=== PATIENT | female | born 1960 | race Caucasian/White ===

== ENCOUNTER 2017-02-11 14:10 | Emergency (ER) | payer BC ==
[~2017-02-11 14:10] MED LIST: Ciprofloxacin 500 MG Tab ONE
[2017-02-11 14:53] VITALS: BP 112/72
--- NOTE | 2017-02-20 09:23 | EDM.PDOC ---
ED HPI GENERAL MEDICAL PROBLEM - General Chief Complaint: General Stated Complaint: URINARY TRACT INFECT? Time Seen by Provider: 02/11/17 15:00 Source of Information: Reports: Patient History Limitations: Reports: No Limitations - History of Present Illness INITIAL COMMENTS - FREE TEXT/NARRATIVE: According to patient she has been having increased urinary frequency with burning sensation for past 32 days. No fever or chills. No nausea, vomiting or back pain. No vaginal bleeding, pelvic pain or vaginal discharge. Duration: Day(s): (2) Severity: Moderate Improves with: Reports: None Worsens with: Reports: None - Related Data Allergies Allergy/AdvReac Type Severity Reaction Status Date / Time banana Allergy Cannot Verified 08/29/15 13:05 Remember codeine Allergy Cannot Verified 08/29/15 13:05 Remember latex Allergy Cannot Verified 08/29/15 13:05 Remember meperidine HCl [From Demerol] Allergy Cannot Verified 08/29/15 13:05 Remember morphine Allergy Nausea Verified 08/29/15 13:05 Home Meds: Home Meds Colchicine [Colchicine] 0.6 mg PO BID 08/29/15 [History] Pantoprazole [Protonix] 40 mg PO DAILY 08/29/15 [History] predniSONE [Prednisone] 20 mg PO DAILY 08/29/15 [History] Past Medical History HEENT History: Reports: Impaired Vision Cardiovascular History: Reports: Other (See Below) Other Cardiovascular History: pericarditis hx Respiratory History: Reports: None Gastrointestinal History: Reports: GERD Genitourinary History: Reports: Urinary Incontinence Other Genitourinary History: recent uti 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 OB/BYN History: had tubal ligation Musculoskeletal History: Reports: Arthritis, Back Pain, Chronic Psychiatric History: Reports: Depression Oncologic (Cancer) History: Reports: None Dermatologic History: Reports: Eczema - Infectious Disease History Infectious Disease History: Reports: Chicken Pox, Measles, Mumps - Past Surgical History Female Surgical History: Reports: Other (See Below) Social & Family History - Family History Family Medical History: Noncontributory Cardiac: Reports: CAD GI: Reports: None Dermatologic: Reports: Angiodema Oncologic: Reports: Skin - Tobacco Use Smoking Status *Q: Former Smoker Years of Tobacco use: 40 Packs/Tins Daily: 1 Used Tobacco, but Quit: Yes Month Tobacco Last Used: 2010 Second Hand Smoke Exposure: No - Alcohol Use Days Per Week of Alcohol Use: 1 Number of Drinks Per Day: 7 Total Drinks Per Week: 7 - Recreational Drug Use Recreational Drug Use: No ED ROS GENERAL - Review of Systems Review Of Systems: See Below Constitutional: Denies: Fever, Chills HEENT: Denies: Rhinitis, Throat Pain, Throat Swelling Respiratory: Denies: Cough, Sputum Cardiovascular: Denies: Chest Pain, Lightheadedness GI/Abdominal: Denies: Abdominal Pain, Nausea, Vomiting : Reports: Dysuria, Frequency. Denies: Discharge, Pain, Urinary Retention Musculoskeletal: Denies: Joint Pain, Joint Swelling Skin: Denies: Pruritis, Rash ED EXAM, GENERAL - Physical Exam Exam: See Below Exam Limited By: No Limitations General Appearance: Alert, WD/WN, No Apparent Distress Eye Exam: Bilateral Eye: EOMI, PERRL Ears: Normal External Exam, Normal Canal, Hearing Grossly Normal, Normal TMs Ear Exam: Bilateral Ear: Auricle Normal, Canal Normal, TM normal Nose: Normal Inspection, Normal Mucosa, No Blood Throat/Mouth: Normal Inspection, Normal Lips, Normal Teeth, Normal Gums, Normal Oropharynx, Normal Voice, No Airway Compromise Head: Atraumatic, Normocephalic Neck: Normal Inspection, Supple, Non-Tender, Full Range of Motion Respiratory/Chest: No Respiratory Distress, Lungs Clear, Normal Breath Sounds, No Accessory Muscle Use, Chest Non-Tender Cardiovascular: Normal Peripheral Pulses, Regular Rate, Rhythm, No Edema, No Gallop, No JVD, No Murmur, No Rub GI/Abdominal: Normal Bowel Sounds, Soft, Non-Tender, No Organomegaly, No Distention, No Abnormal Bruit, No Mass Course - Vital Signs Text/Narrative:: Pt's UA does show 50-75 WBCs. And she has 2 days history of dysuria and urinary frequency. She does appear to have UTI. Did start her on Cipro 500mg 1 po BID.Advised plenty of fluids and 1-2 glass off cranberry juice. Will send urine culture and followup with results. Last Recorded V/S: Last Vital Signs Temp 96.6 F 02/11/17 14:52 Pulse 88 02/11/17 14:52 Resp 17 02/11/17 14:52 BP 112/72 02/11/17 14:52 Pulse Ox 97 02/11/17 14:52 - Orders/Labs/Meds Labs: Laboratory Tests 02/11/17 Range/Units 14:19 Urine Color Yellow Urine Appearance Cloudy (CLEAR) Urine pH 5.0 (5.0-8.0) Ur Specific Wickes >= 1.030 (1.003-1.030) Urine Protein 100 H (NEGATIVE) mg/dL Urine Glucose (UA) Negative (NEGATIVE) mg/dL Urine Ketones Negative (NEGATIVE) mg/dL Urine Occult Blood Large H (NEGATIVE) Urine Nitrite Negative (NEGATIVE) Urine Bilirubin Negative (NEGATIVE) Urine Urobilinogen 0.2 (0.2-1.0) E.U./dL Ur Leukocyte Esterase Moderate H (NEGATIVE) Urine RBC 50-75 H /HPF Urine WBC 50-75 H /HPF Ur Squamous Epith Cells Few /HPF Urine Bacteria Few /HPF Hyaline Casts Braker Passenger Train Urinalysis Comment Meds: Medications Discontinued Medications Generic Name Dose Route Start Last Admin Trade Name Freq PRN Reason Stop Dose Admin Ciprofloxacin 3,000 mg 02/11/17 14:10 Ciprofloxacin Hcl .ROUTE 02/11/17 14:11 .STK-MED ONE Departure - Departure Time of Disposition: 15:30 Disposition: Home, Self-Care 01 Condition: Good Clinical Impression: UTI (urinary tract infection) - Discharge Information Referrals: PCP,None [Primary Care Provider] - - Problem List & Annotations (1) UTI (urinary tract infection) SNOMED Code(s): 96952820 Code(s): N39.0 - URINARY TRACT INFECTION, SITE NOT SPECIFIED Status: Acute - Problem List Review Problem List Initiated/Reviewed/Updated: Yes - Assessment/Plan Assessment:: UTI Plan: Pt's UA does show 50-75 WBCs. And she has 2 days history of dysuria and urinary frequency. She does appear to have UTI. Did start her on Cipro 500mg 1 po BID.Advised plenty of fluids and 1-2 glass off cranberry juice. Will send urine culture and followup with results.
== END 2017-02-11 15:00 | disposition home or self-care (01) ==
LOC: LB.ED 14:10
DX: N39.0 Urinary tract infection, site not specified (principal); K21.9 Gastro-esophageal reflux disease without esophagitis; M19.90 Unspecified osteoarthritis, unspecified site; F32.9 Major depressive disorder, single episode, unspecified; Z98.51 Tubal ligation status; Z87.891 Personal history of nicotine dependence; Z79.899 Other long term (current) drug therapy; Z88.5 Allergy status to narcotic agent; Z88.8 Allergy status to other drugs, medicaments and biological substances; Z91.018 Allergy to other foods; Z88.6 Allergy status to analgesic agent; Z91.040 Latex allergy status
CPT/HCPCS: 81001; 99283; A9270

== ENCOUNTER 2017-06-03 07:24 | Emergency (ER) | payer BC ==
[2017-06-03] MEDS ORDERED: hydrOXYzine HCl 25 MG Tab ONE (07:30)
[2017-06-03] MEDS ORDERED: predniSONE 10 MG Tab ONE (07:30)
[2017-06-03] MEDS ORDERED: Triamcinolone Acetonide 0.5% Oint 15 GM Tube ONE (07:30)
[2017-06-03 08:09] VITALS: BP 156/99
[2017-06-03] MEDS ORDERED: methylPREDNISolone Sodium Succinate 125 MG/2 ML SDV IM ONE (08:09)
[2017-06-03] MEDS ORDERED: methylPREDNISolone Sodium Succinate 125 MG/2 ML SDV ONE (08:21)
--- NOTE | 2017-06-03 17:33 | EDM.PDOC ---
ED HPI GENERAL MEDICAL PROBLEM - General Chief Complaint: General Stated Complaint: itchiness Time Seen by Provider: 06/03/17 07:55 Source of Information: Reports: Patient History Limitations: Reports: No Limitations - History of Present Illness INITIAL COMMENTS - FREE TEXT/NARRATIVE: This is a 57yo F here for extreme pruritis causing her difficulty sleeping. She recently was on a prednisone burst and kenalog injection but it only helped a little and now she has supplemented on benadryl without improvement. Patient would like something for her eczema and itchiness. Onset: Gradual Duration: Day(s):, Getting Worse Location: Reports: Abdomen, Upper Extremity, Left, Upper Extremity, Right, Lower Extremity, Left, Lower Extremity, Right Severity: Severe Improves with: Reports: None Worsens with: Reports: None Treatments CADASTRAL ENGINEER: Reports: Other Medication(s) Other Treatments CADASTRAL ENGINEER: Benadryl - Related Data Allergies Allergy/AdvReac Type Severity Reaction Status Date / Time banana Allergy Cannot Verified 06/03/17 07:47 Remember codeine Allergy Cannot Verified 06/03/17 07:47 Remember latex Allergy Cannot Verified 06/03/17 07:47 Remember meperidine HCl [From Demerol] Allergy Cannot Verified 06/03/17 07:47 Remember morphine Allergy Nausea Verified 06/03/17 07:47 Home Meds: Home Meds NK [No Known Home Meds] 06/03/17 [History] Past Medical History HEENT History: Reports: Impaired Vision Cardiovascular History: Reports: Other (See Below) Other Cardiovascular History: pericarditis hx Respiratory History: Reports: None Gastrointestinal History: Reports: GERD Genitourinary History: Reports: Urinary Incontinence Other Genitourinary History: 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: had tubal 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 Musculoskeletal History: Reports: Arthritis, Back Pain, Chronic Psychiatric History: Reports: Depression Oncologic (Cancer) History: Reports: None Dermatologic History: Reports: Eczema - Infectious Disease History Infectious Disease History: Reports: Chicken Pox, Measles, Mumps - Past Surgical History Female Surgical History: Reports: Other (See Below) Other Neurological Surgeries/Procedures: denies sensation changes Social & Family History - Family History Family Medical History: Noncontributory Cardiac: Reports: CAD GI: Reports: None Dermatologic: Reports: Angiodema Oncologic: Reports: Skin - Tobacco Use Smoking Status *Q: Former Smoker Years of Tobacco use: 40 Packs/Tins Daily: 1 Used Tobacco, but Quit: Yes Month Tobacco Last Used: 2010 Second Hand Smoke Exposure: No - Alcohol Use Days Per Week of Alcohol Use: 1 Number of Drinks Per Day: 7 Total Drinks Per Week: 7 - Recreational Drug Use Recreational Drug Use: No ED ROS GENERAL - Review of Systems Review Of Systems: ROS reveals no pertinent complaints other than HPI. ED EXAM, GENERAL - Physical Exam Exam: See Below Exam Limited By: No Limitations General Appearance: Alert, WD/WN, Moderate Distress Respiratory/Chest: No Respiratory Distress Cardiovascular: Normal Peripheral Pulses Neurological: Alert, Oriented Psychiatric: Anxious Skin Exam: Rash, Other (dry irritated, excoriated arms, hands, thighs) Course - Vital Signs Last Recorded V/S: Last Vital Signs Temp 36.4 C 06/03/17 07:51 Pulse 101 H 06/03/17 08:08 Resp 18 06/03/17 08:08 BP 156/99 H 06/03/17 08:08 Pulse Ox 99 06/03/17 08:08 - Orders/Labs/Meds Meds: Medications Discontinued Medications Generic Name Dose Route Start Last Admin Trade Name Momo PRN Reason Stop Dose Admin Hydroxyzine HCl 225 mg 06/03/17 07:30 Atarax .ROUTE 06/03/17 07:31 .STK-MED ONE Methylprednisolone Sodium Succinate 125 mg 06/03/17 08:09 06/03/17 08:39 Solu-Medrol IM 06/03/17 08:10 125 mg ONETIME ONE Administration Methylprednisolone Sodium Succinate Confirm 06/03/17 08:21 06/03/17 09:27 Solu-Medrol Administered 06/03/17 08:22 Not Given Dose 125 mg .ROUTE .STK-MED ONE Prednisone 150 mg 06/03/17 07:30 Prednisone .ROUTE 06/03/17 07:31 .STK-MED ONE Triamcinolone Acetonide 15 gm 06/03/17 07:30 Triamcinolone Acetonide 0.5% Oint .ROUTE 06/03/17 07:31 .STK-MED ONE Departure - Departure Time of Disposition: 08:45 Disposition: Home, Self-Care 01 Condition: Good Clinical Impression: Severe eczema - Discharge Information Instructions: Eczema, Hand Dermatitis, [id number] Referrals: PCP,None [Primary Care Provider] - Forms: ED Department Discharge Additional Instructions: Take Prednisone tablets as directed. Use up the bottle of Prednisone that has been given to you and then machine operator picker your prescription for the rest of your Prednisone on Sunday. You have been given a tube of Triamcinolone cream as needed. Also, use the Eucrisa cream as needed, do not use these creams on the same areas at the same time. You have also been given Hydroxyzine to take as needed, if this medication works for you let Dr. Nichols know and he can write you a prescription for this. Do not use hot water, and it would be best for you to go get a humidifier. If your symptoms worsen return to the ER or come to the clinic. If you have any questions or concerns please call us at [phone].
== END 2017-06-03 08:58 | disposition home or self-care (01) ==
LOC: LB.ED 07:24
DX: L30.9 Dermatitis, unspecified (principal); Z91.018 Allergy to other foods; Z88.5 Allergy status to narcotic agent; Z91.040 Latex allergy status; Z87.891 Personal history of nicotine dependence
CPT/HCPCS: 96372; 99282-25; A9270-GY; J2930

== ENCOUNTER 2017-11-24 14:32 | Emergency (ER) | payer BC ==
[2017-11-24] MEDS: Sodium Chloride 0.9% 1,000 ML IV SCH ×2 (15:10→16:58)
[2017-11-24] MEDS ORDERED: diphenhydrAMINE 50 MG/ML SDV IVPUSH ONE (15:45)
[2017-11-24] MEDS ORDERED: Ondansetron 4 MG/2 ML SDV IVPUSH PRN (15:45)
[2017-11-24] MEDS ORDERED: Ketorolac 60 MG/2 ML SDV IVPUSH ONE (15:45)
[2017-11-24] MEDS ORDERED: Sodium Chloride 0.9% 10 ML Syringe FLUSH PRN (15:47)
[2017-11-24 16:41] VITALS: BP 121/71
--- NOTE | 2017-11-26 07:59 | CT ---
DATE OF SERVICE: 11/24/17 CLINICAL DATA: headache,nausea vomiting UNENHANCED BRAIN CT: Normal exam. [id number] MTDD
== END 2017-11-24 18:10 | disposition home or self-care (01) ==
LOC: LB.ED 14:32
DX: R51 Headache (principal); E86.0 Dehydration
CPT/HCPCS: 36415; 70450; 80048; 85025; 96361; 96374; 96375; 99284-25; J1200; J1885; J2405; J7030; J7050

== ENCOUNTER 2017-11-25 18:17 | Emergency (ER) | payer BC ==
[2017-11-25] MEDS ORDERED: Sodium Chloride 0.9% 1,000 ML IV ONE (19:00)
[2017-11-25] MEDS ORDERED: Ondansetron 4 MG/2 ML SDV IVPUSH ONE (19:15)
[2017-11-25] MEDS ORDERED: Sodium Chloride 0.9% 10 ML Syringe FLUSH PRN (19:18)
[2017-11-25 19:51] VITALS: BP 115/68
--- NOTE | 2017-11-26 08:09 | CT ---
DATE OF SERVICE: 11/25/17 CLINICAL DATA: ABD PAIN UNENHANCED ABDOMEN AND PELVIC CT: Multislice acquisition through the abdomen and pelvis without IV or oral contrast was performed. No priors. The lung bases are clear. There is a small hiatal hernia. There is gas in the distal esophagus, most likely related to GE reflux. The unenhanced liver appears normal. The gallbladder appears normal. The spleen appears normal. The pancreas appears normal. The right and left adrenals appear normal. There is a 2 mm nonobstructing renal calculi on the left. The kidneys otherwise appear normal. No hydronephrosis or hydroureter. The bladder is fluid-filled and appears normal. No evidence of appendicitis. There are scattered air-fluid levels in the small bowel. No distended loops of bowel. Enteritis should be considered. No free air. No free fluid. No dilated loops of bowel. No adenopathy. No aortic aneurysm. [id number] [facility]
== END 2017-11-25 21:00 | disposition home or self-care (01) ==
LOC: LB.ED 18:17
DX: R10.11 Right upper quadrant pain (principal); R11.2 Nausea with vomiting, unspecified
CPT/HCPCS: 36415; 74176; 80048; 80076; 81001; 85025; 87086; 87088; 96374; 99284; J2405; J7030; J7050; 83690; 87186

== ENCOUNTER 2018-11-16 20:31 | Emergency (ER) | payer BC ==
[2018-11-16 22:49] VITALS: BP 125/65
--- NOTE | 2018-11-16 23:46 | EDM.PDOC ---
ED HPI GENERAL MEDICAL PROBLEM - General Chief Complaint: General Stated Complaint: laceration Time Seen by Provider: 11/16/18 21:45 Source of Information: Reports: Patient History Limitations: Reports: No Limitations - History of Present Illness INITIAL COMMENTS - FREE TEXT/NARRATIVE: This is a pleasant 58yo F here for a laceration of the right lower anterior june area. She tripped on a tree root and landed directed on the june area and tore the skin. Patient denies any other issues or injuries and states her tetanus is up to date. Onset: Sudden Location: Reports: Lower Extremity, Right Quality: Reports: Ache Severity: Moderate Improves with: Reports: None Worsens with: Reports: None - Related Data Allergies Allergy/AdvReac Type Severity Reaction Status Date / Time banana Allergy Cannot Verified 11/16/18 23:39 Remember codeine Allergy Cannot Verified 11/16/18 23:39 Remember latex Allergy Cannot Verified 11/16/18 23:39 Remember meperidine HCl [From Demerol] Allergy Cannot Verified 11/16/18 23:39 Remember morphine Allergy Nausea Verified 11/16/18 23:39 Home Meds: Home Meds Doxepin HCl [Doxepin] 1 tab PO DAILY 11/16/18 [History] Fluocinonide [Lidex 0.05% Oint] 1 applic TOP ASDIRECTED 11/16/18 [History] Loratadine 1 tab PO BID 11/16/18 [History] Past Medical History HEENT History: Reports: Impaired Vision Cardiovascular History: Reports: Other (See Below) Other Cardiovascular History: pericarditis hx Respiratory History: Reports: None Gastrointestinal History: Reports: GERD Genitourinary History: Reports: Urinary Incontinence, UTI, Recurrent Other Genitourinary History: recent uti 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 SURVEYS 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: had tubal ligation Musculoskeletal History: Reports: Arthritis, Back Pain, Chronic Psychiatric History: Reports: Anxiety, Depression Oncologic (Cancer) History: Reports: None Dermatologic History: Reports: Eczema - Infectious Disease History Infectious Disease History: Reports: Chicken Pox, Measles, Mumps - Past Surgical History Female Surgical History: Reports: Other (See Below) Other Female Surgeries/Procedures: bladder repair Other Neurological Surgeries/Procedures: denies sensation changes Social & Family History - Family History Family Medical History: Noncontributory Cardiac: Reports: CAD GI: Reports: None Dermatologic: Reports: Angiodema Oncologic: Reports: Skin - Tobacco Use Smoking Status *Q: Former Smoker Packs/Tins Daily: 30 Used Tobacco, but Quit: Yes Month/Year Tobacco Last Used: 2010 - Caffeine Use Caffeine Use: Reports: None - Recreational Drug Use Recreational Drug Use: No ED ROS GENERAL - Review of Systems Review Of Systems: ROS reveals no pertinent complaints other than HPI. ED EXAM, GENERAL - Physical Exam Exam: See Below Exam Limited By: No Limitations General Appearance: Alert, WD/WN, Mild Distress Eye Exam: Bilateral Eye: EOMI, PERRL Ears: Normal External Exam Nose: Normal Inspection Throat/Mouth: Normal Inspection Head: Atraumatic, Normocephalic Neck: Normal Inspection Respiratory/Chest: No Respiratory Distress, Lungs Clear Cardiovascular: Normal Peripheral Pulses, Regular Rate, Rhythm Peripheral Pulses: 2+: Dorsalis Pedis (L), Dorsalis Pedis (R) GI/Abdominal: Normal Bowel Sounds Extremities: Other (right lower right june skin shearing and tear 4inches across elliptical with 1 inch diameter) ED GENERAL MEDICAL PROCEDURES - Additional/Other Procedure(s) Other (Free Text) Procedure(s): Area cleansed and approximated skin shear as much as possible and steri-strips applied with bacitracin and dressed. No complications. Course - Vital Signs Last Recorded V/S: Last Vital Signs Temp 37.1 C 11/16/18 21:45 Pulse 88 11/16/18 21:45 Resp 16 11/16/18 21:45 BP 125/65 11/16/18 21:45 Pulse Ox 97 11/16/18 21:45 Departure - Departure Time of Disposition: 22:30 Disposition: Home, Self-Care 01 Condition: Good Clinical Impression: Skin tear of right lower leg without complication Qualifiers: Encounter type: initial encounter Qualified Code(s): S81.811A - Laceration without foreign body, right lower leg, initial encounter - Discharge Information Instructions: Wound Infection, [id number] Forms: ED Department Discharge Additional Instructions: Keep applied dressing in place until tomorrow afternoon and then remove, gently clean around area and dab dry, apply Bacitracin as instructed by Dr. Nichols, cover with Telfa non-adherent dressing and secure with roll gauze. Dressing changes daily and as needed for next 2-3 days. Be sure to watch affected area for any signs and symptoms of infection present including increased redness, increased swelling, increased pain or tenderness to touch, foul drainage, and/or fever present. Should any of these symptoms occur, return to be seen for further treatment. Call with any questions. - Problem List & Annotations (1) Skin tear of right lower leg without complication SNOMED Code(s): 074203505 Code(s): S81.811A - LACERATION W/O FOREIGN BODY, RIGHT LOWER LEG, INIT ENCNTR Status: Acute Priority: High Qualifiers: Encounter type: initial encounter Qualified Code(s): S81.811A - Laceration without foreign body, right lower leg, initial encounter - Problem List Review Problem List Initiated/Reviewed/Updated: Yes - Assessment/Plan Plan: Counseled on wound care and close monitoring and management and f/u as needed. Discussed dressing changes and continued care. Patient understands care and f/u as directed.
== END 2018-11-16 22:15 | disposition home or self-care (01) ==
LOC: LB.ED 20:31
DX: S81.811A Laceration without foreign body, right lower leg, initial encounter (principal); M19.90 Unspecified osteoarthritis, unspecified site; Z87.891 Personal history of nicotine dependence; Z88.5 Allergy status to narcotic agent; Z91.040 Latex allergy status; Z91.018 Allergy to other foods; W01.198A Fall on same level from slipping, tripping and stumbling with subsequent striking against other object, initial encounter
CPT/HCPCS: 99282

== ENCOUNTER 2019-04-13 16:16 | Emergency (ER) | payer BC ==
[2019-04-13 16:43] VITALS: BP 149/91; PULSE 92
--- NOTE | 2019-04-14 00:17 | ER ---
HPI: A 59-year-old lady here with complaints of right foot pain. It has been bothering her for a few days. It is steadily getting worse. The patient has undergone bunionectomy surgery on the left foot 2 weeks ago. She states this is doing well, but now her right foot is getting more and more painful as she is starting to walk a little bit more each day. Her right foot is to the point where the pain is severe at times. She denies any falls or injuries to the right foot. OBJECTIVE: GENERAL APPEARANCE: The patient is awake and alert, in no obvious distress. VITAL SIGNS: Reviewed as listed. EXTREMITIES: Examining the right foot reveals skin is intact. There is tenderness with palpation along the dorsal and sole of the foot over the area roughly of the third, fourth, and fifth metatarsals. Pushing on the ball of the foot against resistance is definitely painful with guarding for the patient. She also has pain when she goes up on her tiptoes flexing the foot. This is consistent with tendinitis. DIAGNOSIS: Tendinitis. TREATMENT PLAN: A walking Cam will be given to her. She is to wear this with all walking activities for 2 weeks, longer if needed. She does have ibuprofen 800 mg tablets at home. She is to use 1 tablet t.i.d. with food. Over the next few days, she can start breaking them in half and going to 400 mg as her symptoms should be improving. Activity should be as tolerated and recheck should be in a week or so in the clinic unless her symptoms have significantly improved at that time and then recheck could be p.r.nDarrel LIZAMA/JASWANT /[id number]
== END 2019-04-13 16:50 | disposition home or self-care (01) ==
LOC: LB.ED 16:16
DX: M77.9 Enthesopathy, unspecified (principal)
CPT/HCPCS: 99283

== ENCOUNTER 2019-12-27 19:50 | Emergency (ER) | payer BC ==
[2019-12-27] MEDS ORDERED: Prochlorperazine 10 MG/2 ML SDV IVPUSH ONE (20:48)
--- NOTE | 2019-12-27 20:50 | EDM.PDOC ---
ED HPI GENERAL MEDICAL PROBLEM - General Chief Complaint: General Stated Complaint: flank pain Time Seen by Provider: 12/27/19 20:30 Source of Information: Reports: Patient History Limitations: Reports: No Limitations - History of Present Illness INITIAL COMMENTS - FREE TEXT/NARRATIVE: pt presents to the ER with right side flank pain and RUQ abdominal pain. pt describes both as a constant pressure and have been unrelenting since onset at about 1400 today. pt attempted tylenol without relief, no other alleviating factors known by pt. aggravating factors include palpation of these areas, pt states she feels nauseated with palpation. pt denies fever, chills, vomiting, dysuria, hematuria, pyuria, pain with ROM of back. Left Flank Pain Score (Numeric/FACES): 8 - Related Data Allergies Allergy/AdvReac Type Severity Reaction Status Date / Time banana Allergy Cannot Verified 12/27/19 20:27 Remember codeine Allergy Cannot Verified 12/27/19 20:27 Remember latex Allergy Cannot Verified 12/27/19 20:27 Remember meperidine HCl [From Demerol] Allergy Cannot Verified 12/27/19 20:27 Remember morphine Allergy Nausea Verified 12/27/19 20:27 Home Meds: Home Meds Doxepin HCl [Doxepin] 1 tab PO DAILY 11/16/18 [History] Past Medical History HEENT History: Reports: Impaired Vision Cardiovascular History: Reports: Other (See Below) Other Cardiovascular History: pericarditis hx Respiratory History: Reports: None Gastrointestinal History: Reports: GERD Genitourinary History: Reports: Urinary Incontinence, UTI, Recurrent Other Genitourinary History: recent uti 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 Musculoskeletal History: Reports: Arthritis, Back Pain, Chronic Psychiatric History: Reports: Anxiety, Depression Oncologic (Cancer) History: Reports: None Dermatologic History: Reports: Eczema - Infectious Disease History Infectious Disease History: Reports: Chicken Pox, Measles, Mumps - Past Surgical History Female Surgical History: Reports: Other (See Below) Other Female Surgeries/Procedures: bladder repair Other Neurological Surgeries/Procedures: denies sensation changes Musculoskeletal Surgical History: Reports: Shoulder Surgery Other Musculoskeletal Surgeries/Procedures:: 10/2019 - Right RCR, subacromial decompression, biceps tenodesis Social & Family History - Family History Family Medical History: Noncontributory Cardiac: Reports: CAD GI: Reports: None Dermatologic: Reports: Angiodema Oncologic: Reports: Skin - Tobacco Use Smoking Status *Q: Former Smoker Used Tobacco, but Quit: Yes Month/Year Tobacco Last Used: 1999 - Caffeine Use Caffeine Use: Reports: Coffee, Soda - Recreational Drug Use Recreational Drug Use: No ED ROS GENERAL - Review of Systems Review Of Systems: Comprehensive ROS is negative, except as noted in HPI. ED EXAM, GENERAL - Physical Exam Exam: See Below Exam Limited By: No Limitations General Appearance: Alert, WD/WN, Mild Distress Eye Exam: Bilateral Eye: EOMI, PERRL Head: Atraumatic, Normocephalic Respiratory/Chest: No Respiratory Distress, Lungs Clear, Normal Breath Sounds, No Accessory Muscle Use Cardiovascular: Normal Peripheral Pulses, Regular Rate, Rhythm, No Gallop, No JVD, No Murmur, No Rub Peripheral Pulses: 2+: Radial (L), Radial (R) GI/Abdominal: Normal Bowel Sounds, Soft, No Organomegaly, No Mass, Tender (RUQ TTP) Back Exam: Normal Inspection, Full Range of Motion, Other (no CVA tenderness) Neurological: Alert, Oriented, CN II-XII Intact, Normal Cognition, Normal Gait Psychiatric: Normal Affect, Normal Mood Skin Exam: Warm, Dry, Intact Course - Vital Signs Last Recorded V/S: Last Vital Signs Temp 97 F 12/27/19 21:55 Pulse 80 12/27/19 21:55 Resp 18 12/27/19 21:55 BP 119/61 12/27/19 21:55 Pulse Ox 97 12/27/19 21:55 - Orders/Labs/Meds Orders: Active Orders 24 hr Category Date Time Status Abdomen w Cont [CT] Stat Exams 12/27/19 20:52 Taken Ketorolac [Toradol] Med 12/27/19 21:30 Active 15 mg IVPUSH Q6H Lactated Ringers [Ringers, Lactated] 1,000 ml Med 12/27/19 21:00 Active IV BOLUS Medication Orders Lactated Ringer's (Ringers, Lactated) 1,000 mls @ 1,000 mls/hr IV BOLUS CAROLINE Last Admin: 12/27/19 20:52 Dose: 1,000 mls/hr Documented by: MERLE Ketorolac Tromethamine (Toradol) 15 mg IVPUSH Q6H CAROLINE Stop: 01/01/20 21:28 Last Admin: 12/27/19 21:31 Dose: 15 mg Documented by: MERLE Labs: Laboratory Tests 12/27/19 12/27/19 12/27/19 Range/Units 20:55 20:55 22:00 WBC 9.6 D (4.0-11.0) K/uL RBC 4.41 (3.80-5.80) M/uL Hgb 13.1 (11.5-16.5) g/dL Hct 39.0 (37.0-47.0) % MCV 88 (76-96) fL MCH 29.7 (27.0-32.0) pg MCHC 33.6 (31.0-35.0) g/dL RDW 12.9 (11.0-16.0) % Plt Count 356 (150-500) K/uL MPV 8.8 (6.0-10.0) fL Neut % (Auto) 51.9 (45.0-70.0) % Lymph % (Auto) 33.9 (20.0-40.0) % [place] % (Auto) 10.1 H (3.0-10.0) % Eos % (Auto) 3.2 (1.0-5.0) % Baso % (Auto) 0.9 H (0.0-0.5) % Neut # (Auto) 4.96 (2.00-7.50) K/uL Lymph # (Auto) 3.25 (1.50-4.00) K/uL [place] # (Auto) 0.97 H (0.20-0.80) K/uL Eos # (Auto) 0.31 (0.04-0.40) K/uL Baso # (Auto) 0.09 (0.02-0.10) K/uL Sodium 140 (136-145) mmol/L Potassium 3.4 L (3.5-5.1) mmol/L Chloride 106 (98-107) mmol/L Carbon Dioxide 26.4 (21.0-32.0) mmol/L Anion Gap 11.0 (5.0-15.0) mmol/L BUN 22 D (8-26) mg/dL Creatinine 0.91 D (0.55-1.02) mg/dL Est Cr Clr Drug Dosing 56.77 mL/min Estimated GFR (MDRD) > 60 (>60) MLS/MIN BUN/Creatinine Ratio 24.2 (6-25) Glucose 118 H (74-100) mg/dL Calcium 9.1 (8.5-10.1) mg/dL Total Bilirubin 0.2 D (0.0-1.0) mg/dL AST 16 (15-37) U/L ALT 55 (12-78) U/L Alkaline Phosphatase 91 (46-116) U/L Total Protein 7.3 (6.4-8.2) g/dL Albumin 3.5 (3.4-5.0) g/dL Globulin 3.8 (2.2-4.2) g/dL Albumin/Globulin Ratio 0.9 (0.8-2.0) Lipase 181 D (73-393) U/L Urine Color Yellow Urine Appearance Clear (CLEAR) Urine pH 5.5 (5.0-8.0) Ur Specific [place] >= 1.030 (1.003-1.030) Urine Protein Negative (NEGATIVE) mg/dL Urine Glucose (UA) Negative (NEGATIVE) mg/dL Urine Ketones Negative (NEGATIVE) mg/dL Urine Occult Blood Negative (NEGATIVE) Urine Nitrite Negative (NEGATIVE) Urine Bilirubin Negative (NEGATIVE) Urine Urobilinogen 0.2 (0.2-1.0) E.U./dL Ur Leukocyte Esterase Negative (NEGATIVE) Meds: Medications Generic Name Dose Route Start Last Admin Trade Name Freq PRN Reason Stop Dose Admin Lactated Ringer's 1,000 mls @ 1,000 mls/hr 12/27/19 21:00 12/27/19 20:52 Ringers, Lactated IV 1,000 mls/hr BOLUS CAROLINE Administration Ketorolac Tromethamine 15 mg 12/27/19 21:30 12/27/19 21:31 Toradol IVPUSH 01/01/20 21:28 15 mg Q6H CAROLINE Administration Discontinued Medications Generic Name Dose Route Start Last Admin Trade Name Freq PRN Reason Stop Dose Admin Fentanyl 50 mcg 12/27/19 20:43 12/27/19 21:20 Sublimaze IVPUSH 50 mcg Q5M PRN Administration Pain Fentanyl 50 mcg 12/27/19 21:11 Sublimaze IVPUSH Q5M PRN Pain Prochlorperazine Edisylate 10 mg 12/27/19 20:48 12/27/19 20:58 Compazine IVPUSH 12/27/19 20:49 10 mg ONETIME ONE Administration Departure - Departure Time of Disposition: 22:21 Disposition: Home, Self-Care 01 Condition: Good Clinical Impression: RUQ abdominal pain, Left flank pain - Discharge Information *PRESCRIPTION DRUG MONITORING PROGRAM REVIEWED*: No *COPY OF PRESCRIPTION DRUG MONITORING REPORT IN PATIENT JIMMIE: No Instructions: Cholelithiasis, [id number] Forms: ED Department Discharge Additional Instructions: drink at least 100oz of water a day tylenol 1,000mg and ibuprofen 600mg of ibuprofen four times a day for pain US outpatient order, they will call sunday. this is to get a better check of gallbladder stay away from fatty foods for the next few days. Sepsis Event Note (ED) - Evaluation Sepsis Screening Result: No Definite Risk - Focused Exam Vital Signs: Vital Signs Temp Pulse Resp BP Pulse Ox 12/27/19 21:55 97 F 80 18 119/61 97 12/27/19 20:43 98 158/93 H 12/27/19 20:30 97.7 F 104 H 18 183/103 H 97 - Problem List & Annotations (1) Left flank pain SNOMED Code(s): 566682762 Code(s): R10.9 - UNSPECIFIED ABDOMINAL PAIN Status: Acute (2) RUQ abdominal pain SNOMED Code(s): 478833345 Code(s): R10.11 - RIGHT UPPER QUADRANT PAIN Status: Acute - Problem List Review Problem List Initiated/Reviewed/Updated: Yes - My Orders Last 24 Hours: My Active Orders 12/27/19 20:52 Abdomen w Cont [CT] Stat 12/27/19 21:00 Lactated Ringers [Ringers, Lactated] 1,000 ml IV BOLUS 12/27/19 21:30 Ketorolac [Toradol] 15 mg IVPUSH Q6H - Assessment/Plan Last 24 Hours: My Active Orders 12/27/19 20:52 Abdomen w Cont [CT] Stat 12/27/19 21:00 Lactated Ringers [Ringers, Lactated] 1,000 ml IV BOLUS 12/27/19 21:30 Ketorolac [Toradol] 15 mg IVPUSH Q6H Assessment:: assessment: RUQ abdominal pain L flank pain plan: 100mcg fentanyl, 15mg toradol for pain, compazine for nausea, over an hour passed since pt provided medication and pt pain had completely resolved. discharge home to monitor condition OTC pain meds prn outpt US RUQ pt evaluated in the ER in setting of covid 19 pandemic. differentials considered gallbladder attack, cholecystitis, choledocolithiasis, renal stone, UTI
[2019-12-27] MEDS ORDERED: Lactated Ringers 1,000 ML IV SCH (21:00)
[2019-12-27] MEDS ORDERED: fentaNYL 100 MCG/2 ML SDV IVPUSH PRN (21:11)
[2019-12-27] MEDS: fentaNYL 100 MCG/2 ML SDV IVPUSH PRN ×2 (21:15→21:20)
[2019-12-27] MEDS ORDERED: Ketorolac 60 MG/2 ML SDV IVPUSH SCH (21:30)
[2019-12-27 21:56] VITALS: BP 119/61; PULSE 80
--- NOTE | 2019-12-28 10:21 | CT ---
DATE OF SERVICE: 12/27/19 CLINICAL DATA: RUQ pain, TTP. gallbladder attack? renal stones? ENHANCED ABDOMEN CT: Multislice acquisition through the abdomen with IV, but without oral contrast was performed. Comparison is made to a prior exam dated 11/29/17. There are mild atelectatic changes in the dependent portion of both lower lungs. The lung bases are otherwise clear. The heart size is normal. There is mild diffuse fatty infiltration of the liver. No focal hepatic lesions. The gallbladder is mildly distended. otherwise normal. No biliary duct dilatation. The spleen appears normal. The pancreas appears normal. The right and left adrenals appear normal. The right and left kidneys enhance symmetrically. There is a subcentimeter low density lesion in the right renal pt1lthy most likely representing cysts. The kidneys otherwise appear normal. No hydronephrosis or hydroureter. There is a moderate amount of stool noted within the visualized colon. No dilated loops of bowel. No free air. No free fluid. No aortic aneurysm or dissection. No adenopathy. IMPRESSION: No acute abnormalities. Other findings as discussed above. [id number] [facility]
== END 2019-12-27 22:25 | disposition home or self-care (01) ==
LOC: LB.ED 19:50
DX: R10.11 Right upper quadrant pain (principal); Z91.018 Allergy to other foods; Z88.5 Allergy status to narcotic agent; Z91.040 Latex allergy status; Z87.891 Personal history of nicotine dependence
CPT/HCPCS: 36415; 74160; 80053; 81003; 83690; 85025; 96374; 96375; 99284; J0780; J1885; J3010; J7120; 99283

== ENCOUNTER 2021-01-05 00:20 | Emergency (ER) | payer BC ==
[2021-01-05] MEDS ORDERED: methylPREDNISolone Sodium Succinate 125 MG/2 ML SDV IM ONE (00:35)
[2021-01-05 01:48] VITALS: BP 148/81; PULSE 80
--- NOTE | 2021-01-05 10:39 | EDM.PDOC ---
ED HPI GENERAL MEDICAL PROBLEM - General Chief Complaint: Skin Complaint Stated Complaint: rash Time Seen by Provider: 01/05/21 00:20 - History of Present Illness INITIAL COMMENTS - FREE TEXT/NARRATIVE: Patient comes to the ER with complaints of a very itchy rash around her neck and anterior chest wall. She has been using a cold wrap for comfort purposes, and she feels that she is reacting to something with the product she has been using. She did take 2 Benadryl but states that she is very itchy and uncomfortable and cannot sleep. She denies any problems with fever chauffeurs shortness of breath coughing or wheezing. - Related Data Allergies Allergy/AdvReac Type Severity Reaction Status Date / Time banana Allergy Cannot Verified 01/05/21 01:42 Remember codeine Allergy Cannot Verified 01/05/21 01:42 Remember latex Allergy Cannot Verified 01/05/21 01:42 Remember meperidine HCl [From Demerol] Allergy Cannot Verified 01/05/21 01:42 Remember morphine Allergy Nausea Verified 01/05/21 01:42 Home Meds: Home Meds Doxepin HCl [Doxepin] 1 tab PO DAILY 11/16/18 [History] Past Medical History HEENT History: Reports: Impaired Vision Cardiovascular History: Reports: Other (See Below) Other Cardiovascular History: pericarditis hx Respiratory History: Reports: None Gastrointestinal History: Reports: GERD Genitourinary History: Reports: Urinary Incontinence, UTI, Recurrent Other Genitourinary History: recent uti 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 Musculoskeletal History: Reports: Arthritis, Back Pain, Chronic Psychiatric History: Reports: Anxiety, Depression Oncologic (Cancer) History: Reports: None Dermatologic History: Reports: Eczema - Infectious Disease History Infectious Disease History: Reports: Chicken Pox, Measles, Mumps - Past Surgical History Cardiovascular Surgical History: Reports: None Female Surgical History: Reports: Other (See Below) Other Female Surgeries/Procedures: bladder repair Other Neurological Surgeries/Procedures: denies sensation changes Musculoskeletal Surgical History: Reports: Shoulder Surgery Other Musculoskeletal Surgeries/Procedures:: 10/2019 - Right RCR, subacromial decompression, biceps tenodesis Social & Family History - Family History Family Medical History: No Pertinent Family History Cardiac: Reports: CAD GI: Reports: None Dermatologic: Reports: Angiodema Oncologic: Reports: Skin - Tobacco Use Tobacco Use Status *Q: Unknown Ever Used Tobacco - Caffeine Use Caffeine Use: Reports: Coffee, Soda ED ROS GENERAL - Review of Systems Review Of Systems: Comprehensive ROS is negative, except as noted in HPI. Skin: Reports: Pruritis, Rash ED EXAM, SKIN/RASH Exam: See Below Skin: Other (Patient has a diffuse erythematous slightly raised rash on the anterior chest wall radiating up to both shoulders and around the lower portion of her neck there are no blisters or pustules or scabs noted. The rash is slightly warm to touch, and the patient wants to keep itching at the area.) Course - Vital Signs Last Recorded V/S: Last Vital Signs Temp 98.5 F 01/05/21 00:21 Pulse 80 01/05/21 00:21 Resp 18 01/05/21 00:21 BP 148/81 H 01/05/21 00:21 Pulse Ox 97 01/05/21 00:21 - Orders/Labs/Meds Meds: Medications Discontinued Medications Generic Name Dose Route Start Last Admin Trade Name Momo PRN Reason Stop Dose Admin Methylprednisolone Sodium Succinate 125 mg 01/05/21 00:35 01/05/21 00:32 Methylprednisolone Sodium Succinate 125 Mg/2 Ml Sdv IM 01/05/21 00:36 125 mg ONETIME ONE Administration - Re-Assessments/Exams Free Text/Narrative Re-Assessment/Exam: 01/05/21 10:37 She will be given Solu Medrol 125 mg IM. Departure - Departure Time of Disposition: 01:00 Disposition: Home, Self-Care 01 Condition: Good Clinical Impression: Pruritic rash - Discharge Information *PRESCRIPTION DRUG MONITORING PROGRAM REVIEWED*: Not Applicable *COPY OF PRESCRIPTION DRUG MONITORING REPORT IN PATIENT JIMMIE: Not Applicable Instructions: Rash, Adult Referrals: PCP,None [Primary Care Provider] - Forms: ED Department Discharge Additional Instructions: follow up as needed. return if worse Sepsis Event Note (ED) - Evaluation Sepsis Screening Result: No Definite Risk - Focused Exam Vital Signs: Vital Signs Temp Pulse Resp BP Pulse Ox 01/05/21 00:21 98.5 F 80 18 148/81 H 97
== END 2021-01-05 00:35 | disposition home or self-care (01) ==
LOC: LB.ED 00:20
DX: L29.9 Pruritus, unspecified (principal); Z91.018 Allergy to other foods; Z88.5 Allergy status to narcotic agent; Z91.040 Latex allergy status
CPT/HCPCS: 96372; 99282; J2930

== ENCOUNTER 2021-05-23 10:09 | Emergency (ER) | payer BC ==
[2021-05-23] MEDS: Albuterol/Ipratropium 3.0-0.5 MG/3 ML Neb Soln NEB ONE (10:31)
[2021-05-23 10:53] VITALS: BP 125/88; PULSE 108
--- NOTE | 2021-05-23 11:51 | EDM.PDOC ---
ED HPI GENERAL MEDICAL PROBLEM - General Chief Complaint: Respiratory Problem Stated Complaint: SHORTNESS OF BREATH Time Seen by Provider: 05/23/21 10:45 - History of Present Illness INITIAL COMMENTS - FREE TEXT/NARRATIVE: Pt comes in with C/O wheezing, coughing, and SOB. symptoms started 2-3 weeks ago, but became worse today. She has had Covid testing multiple times with negative results. She has a Covid test pending now. She denies any Hx of Asthma, COPD, or bronchitis. She has never has a inhaler at home. Cough is dry. - Related Data Allergies Allergy/AdvReac Type Severity Reaction Status Date / Time banana Allergy Cannot Verified 01/05/21 01:42 Remember codeine Allergy Cannot Verified 01/05/21 01:42 Remember latex Allergy Cannot Verified 01/05/21 01:42 Remember meperidine HCl [From Demerol] Allergy Cannot Verified 01/05/21 01:42 Remember morphine Allergy Nausea Verified 01/05/21 01:42 Home Meds: Home Meds Doxepin HCl [Doxepin] 1 tab PO DAILY 11/16/18 [History] Past Medical History HEENT History: Reports: Impaired Vision Cardiovascular History: Reports: Other (See Below) Other Cardiovascular History: pericarditis hx Respiratory History: Reports: None Gastrointestinal History: Reports: GERD Genitourinary History: Reports: Urinary Incontinence, UTI, Recurrent Other Genitourinary History: recent 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 Musculoskeletal History: Reports: Arthritis, Back Pain, Chronic Psychiatric History: Reports: Anxiety, Depression Oncologic (Cancer) History: Reports: None Dermatologic History: Reports: Eczema - Infectious Disease History Infectious Disease History: Reports: Chicken Pox, Measles, Mumps - Past Surgical History Cardiovascular Surgical History: Reports: None Female Surgical History: Reports: Other (See Below) Other Female Surgeries/Procedures: bladder repair Other Neurological Surgeries/Procedures: denies sensation changes Musculoskeletal Surgical History: Reports: Shoulder Surgery Other Musculoskeletal Surgeries/Procedures:: 10/2019 - Right RCR, subacromial decompression, biceps tenodesis Social & Family History - Family History Family Medical History: No Pertinent Family History Cardiac: Reports: CAD GI: Reports: None Dermatologic: Reports: Angiodema Oncologic: Reports: Skin - Tobacco Use Tobacco Use Status *Q: Former Tobacco User Used Tobacco, but Quit: Yes Month/Year Tobacco Last Used: 2009 Tobacco Use Comment: quit 9 years ago - Caffeine Use Caffeine Use: Reports: Coffee, Soda - Recreational Drug Use Recreational Drug Use: No ED ROS GENERAL - Review of Systems Review Of Systems: Comprehensive ROS is negative, except as noted in HPI. Respiratory: Reports: Shortness of Breath, Wheezing, Cough ED EXAM, GENERAL - Physical Exam Exam: See Below Ear Exam: Bilateral Ear: TM Dull Respiratory/Chest: Other (Lung exam reveals wheezes and Rhonchi in the bases.) Course - Vital Signs Last Recorded V/S: Last Vital Signs Temp 98 F 05/23/21 10:52 Pulse 108 H 05/23/21 10:52 Resp 18 05/23/21 10:52 BP 125/88 05/23/21 10:52 Pulse Ox 98 05/23/21 10:52 - Orders/Labs/Meds Orders: Active Orders 24 hr Category Date Time Status Chest 1V Frontal [CR] Stat Exams 05/23/21 10:31 Taken COMPREHENSIVE METABOLIC PN,CMP [CHEM] Stat Lab 05/23/21 10:41 Received Labs: Laboratory Tests 05/23/21 Range/Units 10:41 WBC 8.1 D (4.0-11.0) K/uL RBC 4.86 (3.80-5.80) M/uL Hgb 13.9 (11.5-16.5) g/dL Hct 40.9 (37.0-47.0) % MCV 84 (76-96) fL MCH 28.6 (27.0-32.0) pg MCHC 34.0 (31.0-35.0) g/dL RDW 12.6 (11.0-16.0) % Plt Count 407 (150-500) K/uL MPV 9.0 (6.0-10.0) fL Neut % (Auto) 54.2 (45.0-70.0) % Lymph % (Auto) 37.3 (20.0-40.0) % [place] % (Auto) 6.7 (3.0-10.0) % Eos % (Auto) 1.2 (1.0-5.0) % Baso % (Auto) 0.6 H (0.0-0.5) % Neut # (Auto) 4.40 (2.00-7.50) K/uL Lymph # (Auto) 3.03 (1.50-4.00) K/uL [place] # (Auto) 0.54 (0.20-0.80) K/uL Eos # (Auto) 0.10 (0.04-0.40) K/uL Baso # (Auto) 0.05 (0.02-0.10) K/uL Meds: Medications Discontinued Medications Generic Name Dose Route Start Last Admin Trade Name Freq PRN Reason Stop Dose Admin Albuterol/Ipratropium 3 ml 05/23/21 10:29 05/23/21 10:31 Albuterol/Ipratropium 3.0-0.5 Mg/3 Ml Neb Soln NEB 05/23/21 10:30 3 ml ONETIME ONE Administration - Re-Assessments/Exams Free Text/Narrative Re-Assessment/Exam: 05/23/21 11:49 Pt responded well to a Duo neb treatment. Her lungs are now clear. CXR is negative for Pneumonia. CBC is nml. She will be discharged home to rest today and maybe tomorrow. Use Albuterol prn. Follow up as needed. Departure - Departure Time of Disposition: 11:45 Disposition: Home, Self-Care 01 Clinical Impression: Acute bronchiolitis Qualifiers: Bronchiolitis organism: unspecified organism Qualified Code(s): J21.9 - Acute bronchiolitis, unspecified - Discharge Information *PRESCRIPTION DRUG MONITORING PROGRAM REVIEWED*: Yes *COPY OF PRESCRIPTION DRUG MONITORING REPORT IN PATIENT JIMMIE: Yes Instructions: How to Use a Metered Dose Inhaler, Acute Bronchitis, Adult Referrals: Socrates Nichols MD [Primary Care Provider] - Forms: ED Department Discharge Additional Instructions: Albuterol inhaler 2 puffs every 4 hrs as needed. Sepsis Event Note (ED) - Evaluation Sepsis Screening Result: No Definite Risk - Focused Exam Vital Signs: Vital Signs Temp Pulse Resp BP Pulse Ox 05/23/21 10:52 98 F 108 H 18 125/88 98 05/23/21 10:20 98 F 96 18 151/95 H 96 - My Orders Last 24 Hours: My Active Orders 05/23/21 10:31 Chest 1V Frontal [CR] Stat 05/23/21 10:41 COMPREHENSIVE METABOLIC PN,CMP [CHEM] Stat - Assessment/Plan Last 24 Hours: My Active Orders 05/23/21 10:31 Chest 1V Frontal [CR] Stat 05/23/21 10:41 COMPREHENSIVE METABOLIC PN,CMP [CHEM] Stat
--- NOTE | 2021-05-23 18:13 | CR ---
Date of Service: 05/23/21 Clinical Data: cough - SOB. AP CHEST: Comparison is made to a prior exam dated 08/28/16. The heart size is normal. The lungs are clear. No pneumothorax. No pleural effusions. No evidence of acute intrathoracic disease. [id number] [facility]TD[facility]
== END 2021-05-23 11:44 | disposition home or self-care (01) ==
LOC: LB.ED 10:09
DX: J21.9 Acute bronchiolitis, unspecified (principal); J44.9 Chronic obstructive pulmonary disease, unspecified; Z91.018 Allergy to other foods; Z88.5 Allergy status to narcotic agent; Z91.040 Latex allergy status
CPT/HCPCS: 36415; 71045; 80053; 85025; 99285-25; J7620-GY

== ENCOUNTER 2021-10-09 07:08 | Emergency (ER) | payer BC ==
[2021-10-09] MEDS ORDERED: Amoxicillin/Clavulanate K 875-125 MG Tab ONE (07:50)
[2021-10-09 08:05] VITALS: BP 162/111; PULSE 101
== END 2021-10-09 08:00 | disposition home or self-care (01) ==
LOC: LB.ED 07:08
DX: N30.01 Acute cystitis with hematuria (principal); Z91.018 Allergy to other foods; Z88.5 Allergy status to narcotic agent; Z91.040 Latex allergy status; Z88.6 Allergy status to analgesic agent
CPT/HCPCS: 81001; 87086; 99281; 99283; A9270-GY

== ENCOUNTER 2023-08-20 13:30 | Emergency (ER) | payer OTHER ==
[2023-08-20] MEDS: predniSONE 10 MG Tab PO ONE (13:38)
[2023-08-20] MEDS: Famotidine 20 MG Tab PO ONE (13:38)
[2023-08-20 16:29] VITALS: BP 138/88; PULSE 115
== END 2023-08-20 13:52 | disposition home or self-care (01) ==
LOC: LB.ED 13:35
DX: L25.0 Unspecified contact dermatitis due to cosmetics (principal); Z91.040 Latex allergy status; Z91.018 Allergy to other foods; Z88.8 Allergy status to other drugs, medicaments and biological substances
CPT/HCPCS: 99283; A9270; J7512

== ENCOUNTER 2023-09-10 08:00 | Day surgery (SDC) | payer OTHER ==
[~2023-09-10 08:00] MED LIST changes: -Ciprofloxacin 500 MG Tab ONE; +Lactated Ringers 1,000 ML IV SCH
[2023-09-10] MEDS: Lactated Ringers 1,000 ML IV SCH (08:40)
[2023-09-10] MEDS: ceFAZolin 1 GM in Sodium Chloride 0.9% 50 ML IV ONE (09:21)
[2023-09-10] MEDS ORDERED: Propofol 200 MG/20 ML SDV ONE (10:00)
[2023-09-10] MEDS: Acetaminophen/HYDROcodone 325-5 MG Tab PO PRN (10:11)
[2023-09-10 10:21] VITALS: BP 137/71; PULSE 76
== END 2023-09-10 11:23 | disposition home or self-care (01) ==
LOC: LB.SDS 08:00
PROVIDERS: ATTEND Orthopaedic Surgery
DX: M65.312 Trigger thumb, left thumb (principal); K21.9 Gastro-esophageal reflux disease without esophagitis; Z87.891 Personal history of nicotine dependence; Z79.899 Other long term (current) drug therapy; Z91.018 Allergy to other foods; Z88.5 Allergy status to narcotic agent; Z91.040 Latex allergy status; Z88.8 Allergy status to other drugs, medicaments and biological substances
CPT/HCPCS: A9270-GY; J0690; J2704; J3490; J7120

== ENCOUNTER 2024-03-14 09:18 | Emergency (ER) | payer MEDICARE, BC ==
[2024-03-14] MEDS ORDERED: Sodium Chloride 0.9% 10 ML Syringe FLUSH PRN (09:47)
[2024-03-14] MEDS: Ondansetron 4 MG/2 ML SDV IVPUSH ONE (09:50)
[2024-03-14] MEDS: Sodium Chloride 0.9% 1,000 ML IV SCH (09:54)
[2024-03-14 09:59] LABS: HEMATOCRIT 41.4 % (37.0-47.0); HEMOGLOBIN 14.2 g/dL (11.5-16.5); MEAN CORPUSCULAR HEMOGLOBIN 29.2 pg (27.0-32.0); MEAN CORPUSCULAR HGB CONC 34.3 g/dL (31.0-35.0); MEAN PLATELET VOLUME 9.6 fL (6.0-10.0); RED BLOOD CELL COUNT 4.86 M/uL (3.80-5.80); RED CELL DISTRIBUTION WIDTH 13.1 % (11.0-16.0); WHITE BLOOD CELL COUNT,WBC 10.5 K/uL (4.0-11.0)
[2024-03-14] MEDS: Albuterol/Ipratropium 3.0-0.5 MG/3 ML Neb Soln NEB ONE (10:06)
[2024-03-14 10:14] LABS: ANION GAP 14.2 mmol/L (5.0-15.0); BUN/CREATININE RATIO 19.7 (6-25); CREATININE 0.71 mg/dL (0.55-1.02); EST CRCL DRUG DOSING (CG) 65.35 mL/min; POTASSIUM,K 3.2 mmol/L (3.5-5.1)
[2024-03-14 10:27] LABS: CALCIUM 9.2 mg/dL (8.5-10.1)
[2024-03-14] MEDS: Budesonide 0.5 MG/2 ML Neb Susp NEB ONE (10:34)
[2024-03-14 10:47] LABS: INFLUENZA A NAA NEGATIVE (NEGATIVE); INFLUENZA B NAA NEGATIVE (NEGATIVE)
[2024-03-14] MEDS: Albuterol 0.083% 2.5 MG/3 ML Neb Soln ONE (10:50)
[2024-03-14] MEDS: Budesonide 0.5 MG/2 ML Neb Susp ONE (10:54)
[2024-03-14 11:12] LABS: CORONAVIRUS COVID-19 NAA NEGATIVE (NEGATIVE)
[2024-03-14 19:18] VITALS: BP 127/65; PULSE 103
== END 2024-03-14 11:11 | disposition home or self-care (01) ==
LOC: LB.ED 09:18
DX: J22 Unspecified acute lower respiratory infection (principal); K21.9 Gastro-esophageal reflux disease without esophagitis; Z79.899 Other long term (current) drug therapy; Z88.5 Allergy status to narcotic agent; Z88.8 Allergy status to other drugs, medicaments and biological substances; Z91.040 Latex allergy status; Z91.018 Allergy to other foods
CPT/HCPCS: 0240U; 36415; 80048; 85027; 94640; 96361; 96374; 99284; J2405; J7030; J7620

== ENCOUNTER 2024-12-13 10:45 | Observation (INO) | payer MEDICARE, BC ==
[2024-12-13] MEDS ORDERED: Sodium Chloride 0.9% 10 ML Syringe FLUSH PRN (10:47)
[2024-12-13 11:02] LABS: BASOPHILS ABSOLUTE AUTO 0.03 K/uL (0.02-0.10); BASOPHILS PERCENT AUTO 0.2 % (0.0-0.5); EOSINOPHILS ABSOLUTE AUTO 0.01 K/uL (0.04-0.40); EOSINOPHILS PERCENT AUTO 0.1 % (1.0-5.0); LYMPHOCYTES ABSOLUTE AUTO 0.81 K/uL (1.50-4.00); LYMPHOCYTES PERCENT AUTO 5.9 % (20.0-40.0); MEAN PLATELET VOLUME 9.4 fL (6.0-10.0); MONOCYTES ABSOLUTE AUTO 0.68 K/uL (0.20-0.80); MONOCYTES PERCENT AUTO 5.0 % (3.0-10.0); NEUTROPHILS ABSOLUTE AUTO 12.11 K/uL (2.00-7.50); NEUTROPHILS PERCENT AUTO 88.8 % (45.0-70.0); PLATELET COUNT,PLT 253 K/uL (150-500); RED BLOOD CELL COUNT 4.74 M/uL (3.80-5.80); RED CELL DISTRIBUTION WIDTH 13.5 % (11.0-16.0); WHITE BLOOD CELL COUNT,WBC 13.6 K/uL (4.0-11.0)
[2024-12-13 11:07] LABS: GLUCOSE,URINE NEGATIVE (NEGATIVE); OCCULT BLOOD,URINE MODERATE (NEGATIVE)
[2024-12-13 11:10] LABS: APPEARANCE,URINE CLOUDY (CLEAR)
[2024-12-13] MEDS: Ondansetron 4 MG/2 ML SDV IVPUSH ONE (11:12)
[2024-12-13 11:19] LABS: SQUAMOUS EPITHELIAL CELLS,UR MANY /HPF
[2024-12-13 11:21] LABS: A/G RATIO 0.8 (0.8-2.0); ALANINE AMINOTRANSFERASE,ALT 301.0 U/L (12-78); ASPARTATE AMNIOTRANSFERASE,AST 199.0 U/L (15-37); BILIRUBIN TOTAL 1.4 mg/dL (0.0-1.0); BLOOD UREA NITROGEN,BUN 15.0 mg/dL (8-26); CARBON DIOXIDE,CO2 24.8 mmol/L (21.0-32.0); CHLORIDE,CL 99.0 mmol/L (98-107); CREATININE 0.89 mg/dL (0.55-1.02); EST CRCL DRUG DOSING (CG) 54.42 mL/min; ESTIMATED GFR 72.0 mL/min (>60); GLUCOSE RANDOM 147.0 mg/dL (74-100); PHOSPHORUS 2.4 mg/dL (2.5-4.9); POTASSIUM,K 3.3 mmol/L (3.5-5.1); PROTEIN TOTAL,TP 7.7 g/dL (6.4-8.2); SODIUM,NA 132.0 mmol/L (136-145); TROPONIN I HIGH SENSITIVITY 4.5 pg/ml (<=60.4)
[2024-12-13] MEDS: Ciprofloxacin in D5W 400 MG in Premix Bag 1 BAG IV ONE (12:06)
[2024-12-13] MEDS: Ciprofloxacin in D5W 400 MG in Premix Bag 1 BAG IV SCH (16:40)
[2024-12-14 09:33] VITALS: BP 109/63; PULSE 79
[2024-12-14 09:45] LABS: BASOPHILS ABSOLUTE AUTO 0.04 K/uL (0.02-0.10); BASOPHILS PERCENT AUTO 0.6 % (0.0-0.5); EOSINOPHILS ABSOLUTE AUTO 0.22 K/uL (0.04-0.40); EOSINOPHILS PERCENT AUTO 3.3 % (1.0-5.0); LYMPHOCYTES ABSOLUTE AUTO 0.92 K/uL (1.50-4.00); LYMPHOCYTES PERCENT AUTO 14.0 % (20.0-40.0); MEAN PLATELET VOLUME 9.5 fL (6.0-10.0); MONOCYTES ABSOLUTE AUTO 0.57 K/uL (0.20-0.80); MONOCYTES PERCENT AUTO 8.6 % (3.0-10.0); NEUTROPHILS ABSOLUTE AUTO 4.84 K/uL (2.00-7.50); NEUTROPHILS PERCENT AUTO 73.5 % (45.0-70.0); PLATELET COUNT,PLT 210 K/uL (150-500); RED BLOOD CELL COUNT 4.07 M/uL (3.80-5.80); RED CELL DISTRIBUTION WIDTH 13.3 % (11.0-16.0); WHITE BLOOD CELL COUNT,WBC 6.6 K/uL (4.0-11.0)
[2024-12-14 09:54] LABS: BLOOD UREA NITROGEN,BUN 10.0 mg/dL (8-26); CARBON DIOXIDE,CO2 28.1 mmol/L (21.0-32.0); CHLORIDE,CL 106.0 mmol/L (98-107); CREATININE 0.65 mg/dL (0.55-1.02); EST CRCL DRUG DOSING (CG) 74.51 mL/min; ESTIMATED GFR 98.0 mL/min (>60); GLUCOSE RANDOM 106.0 mg/dL (74-100); POTASSIUM,K 3.6 mmol/L (3.5-5.1); SODIUM,NA 139.0 mmol/L (136-145)
== END 2024-12-14 10:35 | disposition home or self-care (01) ==
LOC: LB.ED 10:45 → LB.MS 14:30
PROVIDERS: ADMIT Surgery; ATTEND Surgery
DX: E86.0 Dehydration (principal); R11.2 Nausea with vomiting, unspecified; N30.01 Acute cystitis with hematuria; Z88.5 Allergy status to narcotic agent; Z88.2 Allergy status to sulfonamides; Z79.899 Other long term (current) drug therapy; Z91.09 Other allergy status, other than to drugs and biological substances; Z91.040 Latex allergy status
CPT/HCPCS: 36415; 71045; 73502-LT; 80048; 80053; 81001; 83735; 84100; 84484; 85025; 93005; 93010; 96361; 96365; 96366; 96374; 96375; 99222; 99238; 99285-25; A9270-GY; G0378; J0744; J2405; J7030

== ENCOUNTER 2025-04-08 07:08 | Emergency (ER) | payer MEDICARE, BC ==
[2025-04-08] MEDS: methylPREDNISolone Sodium Succinate 40 MG/1 ML SDV IM ONE (08:09)
[2025-04-08] MEDS: Ketorolac 15 MG/ML SDV IM ONE (09:42)
[2025-04-08 09:57] VITALS: BP 149/82; PULSE 82
== END 2025-04-08 10:11 | disposition home or self-care (01) ==
LOC: LB.ED 07:08
DX: M54.50 Low back pain, unspecified (principal); G89.29 Other chronic pain; K21.9 Gastro-esophageal reflux disease without esophagitis; Z90.49 Acquired absence of other specified parts of digestive tract; Z88.5 Allergy status to narcotic agent; Z88.8 Allergy status to other drugs, medicaments and biological substances; Z91.013 Allergy to seafood; Z91.040 Latex allergy status; Z79.899 Other long term (current) drug therapy
CPT/HCPCS: 72100; 96372; 99283; J1885; J2919